=== PATIENT | male | born 1965 | race Caucasian/White ===

== ENCOUNTER 2019-01-29 13:24 | Emergency (ER) | payer BC, SELFPAY ==
[2019-01-29 13:26] VITALS: BP 140/92; PULSE 74; RESP 20; TEMP 36.6; O2SAT 100; BMI 33.0
[2019-01-29 14:24] VITALS: BP 132/82; PULSE 64; RESP 16; O2SAT 99
--- NOTE | 2019-01-29 14:49 | RAD_ITS ---
STUDY: X-RAY CHEST REASON FOR EXAM: Male, 54 years old. Dizziness. TECHNIQUE: 2 views COMPARISON: None. FINDINGS: The lungs are clear and expanded. There is no demonstrated pleural abnormality. Normal size heart. Normal mediastinum and laisha. Normal visualized pulmonary arteries. There is atherosclerotic tortuosity of the aortic arch and descending thoracic aorta. Normal visualized thoracic spine. Normal visualized ribs, clavicles, and shoulders. There is no demonstrated abnormality of the visualized soft tissue structures of the upper abdomen. RAD/Chest PA and Lateral IMPRESSION: No acute cardiopulmonary findings. Electronically Signed: Roxy Wilson MD at 15:42 EDT , Service support ,
--- NOTE | 2019-01-29 14:49 | EKG12_ITS ---
Test Reason : CP Blood Pressure : / mmHG Vent. Rate : 073 BPM Atrial Rate : 073 BPM P-R Int : 168 ms QRS Dur : 106 ms QT Int : 406 ms P-R-T Axes : 053 040 048 degrees QTc Int : 447 ms Normal sinus rhythm Normal ECG Confirmed by JOE ANDERSON, KANDIS ([id number]), production editor RITA MEDLEY ([id number]) on 01/30/2019 1:08:53 PM Referred By: BB Confirmed By:KANDIS DIAZ MD
[2019-01-29] MEDS: 0.9% Normal Saline 1,000 ML 1000 ML IV (15:15)
[2019-01-29 15:30] LABS: Absolute Neutrophil Count 4.7 X10^3/uL (2.0-7.7); Basophil# 0.01 X10^3/uL; Basophil% 0.1 % (0-1); Eosinophil# 0.05 X10^3/uL; Eosinophils% 0.7 % (0-5); Hematocrit 47.5 % (40-54); Hemoglobin 15.6 g/dl (13.0-16.5); Mean Corp Hgb Conc 32.8 g/gl (32-36); Mean Corpuscular Hgb 31.2 pg (27.0-32.0); Mean Platelet Vol. 9.6 fl (6.2-12.0); Monocyte# 0.63 X10^3/uL; Monocyte% 8.4 % (0-10); Neutrophil # 4.69 X10^3/uL (2.7-7.7); Neutrophil % 62.7 % (47-70); Platelet Count 219 K/mm3 (150-450); RBC Distribution Width SD 48.1 fl (35.1-43.9); White Blood Count 7.5 K/mm3 (4.4-11.0)
[2019-01-29 15:31] LABS: POSITIVE COUNT NO; POSITIVE DIFFERENTIAL NO; POSITIVE MORPHOLOGY NO
[2019-01-29 15:45] VITALS: BP 133/89; PULSE 76; RESP 17; O2SAT 94
[2019-01-29 15:50] LABS: Anion Gap 3 (5-15); BUN 14 mg/dL (7-18); BUN/Creat Ratio 15.6 RATIO (10-20); Calcium,Total 8.8 mg/dL (8.5-10.1); Chloride 108 mmol/L (98-107); EST Glomerular Filtration Rate 93 mL/min (>60); Est Glom Filt Rate - Afr Amer 113 mL/min (>60); Estimated Creatinine Clearance 109.54 ml/min; Glucose 90 mg/dL (74-106); Sodium Level 140 mmol/L (136-145)
--- NOTE | 2019-01-29 16:04 | ED.VISSUMM ---
- ER Visit Summary Date of Service: 01/29/19 Chief Complaint: Lightheadedness History of Present Illness: The patient is a 54 M who presents with lightheadedness that began today. Patient states he was helping his pain curtains when he felt lightheaded. Patient states it is gradually improving slightly. Patient states he had some blurred vision. Patient admits to a sweat with this. Patient denies any chest pain or shortness of breath. Patient denies any nausea or vomiting. Patient denies any headaches. Patient does admit to some tingling in his arms and legs. Patient admits to some blurred vision with this. Physical Examination: Vital signs are stable. Patient is afebrile. Patient is in no acute distress. Cranial nerves II through XII are intact. There are no focal motor or sensory deficits noted. Heart was regular rate and rhythm. Lungs are clear and equal bilateral. Abdomen is soft and nontender. Oral mucosa is pink and moist. Neck is supple. Trachea is midline. There is no JVD noted. The remaining physical exam is within normal limits. Test Results: EKG showed normal sinus rhythm with a rate of 73. There are no acute ST or T wave changes. PA and lateral chest x-ray does not show any acute cardiopulmonary process. CBC, basic metabolic profile and troponin were obtained and were all normal. Emergency Department Course and Treatment: Patient was feeling better on reevaluation. Patient was instructed to drink plenty of fluids. Patient was instructed to get plenty of rest. Patient was instructed to follow-up with his primary care physician in 5-7 days. Patient understood and was agreeable with the plan. All questions were answered. Disposition: Discharge home Impression: Near syncope This note was generated with [employer] dictation software. It may contain incorrect words, spelling, and punctuation that were not noted in review of the chart prior to signing ED Disposition - Plan for ED Patient: Disposition: Home or Assisted Living Diagnosis: Near syncope Instructions: ED Weakness [facility] – [place] Referrals: Celio Reid MD [Primary Care Provider] - 3-5 Days
--- NOTE | 2019-01-29 16:09 | ED.DCSUM_ITS ---
- ER Visit Summary Date of Service: 01/29/19 Chief Complaint: Lightheadedness History of Present Illness: The patient is a 54 M who presents with lightheadedness that began today. Patient states he was helping his pain curtains when he felt lightheaded. Patient states it is gradually improving slightly. Patient states he had some blurred vision. Patient admits to a sweat with this. Patient denies any chest pain or shortness of breath. Patient denies any nausea or vomiting. Patient denies any headaches. Patient does admit to some tingling in his arms and legs. Patient admits to some blurred vision with this. Physical Examination: Vital signs are stable. Patient is afebrile. Patient is in no acute distress. Cranial nerves II through XII are intact. There are no focal motor or sensory deficits noted. Heart was regular rate and rhythm. Lungs are clear and equal bilateral. Abdomen is soft and nontender. Oral mucosa is pink and moist. Neck is supple. Trachea is midline. There is no JVD noted. The remaining physical exam is within normal limits. Test Results: EKG showed normal sinus rhythm with a rate of 73. There are no acute ST or T wave changes. PA and lateral chest x-ray does not show any acute cardiopulmonary process. CBC, basic metabolic profile and troponin were obtained and were all normal. Emergency Department Course and Treatment: Patient was feeling better on reeval uation. Patient was instructed to drink plenty of fluids. Patient was instructed to get plenty of rest. Patient was instructed to follow-up with his primary care physician in 5-7 days. Patient understood and was agreeable with the plan. All questions were answered. Disposition: Discharge home Impression: Near syncope This note was generated with [employer] dictation software. It may contain incorrect words, spelling, and punctuation that were not noted in review of the chart prior to signing ED Disposition - Plan for ED Patient: Disposition: Home or Assisted Living Diagnosis: Near syncope Instructions: [place] [facility] [place]errals: Celio Reid MD [Primary Care Provider] - 3-5 Days
[2019-01-29 16:27] VITALS: BP 136/84; PULSE 64; RESP 12; O2SAT 99
== END 2019-01-29 16:28 | disposition home or self-care (01) ==
PROVIDERS: Emergency Provider Emergency Medicine; Family Provider Family Medicine; PCP Family Medicine
DX: R55 Syncope and collapse (principal); I10 Essential (primary) hypertension; Z79.82 Long term (current) use of aspirin; Z79.899 Other long term (current) drug therapy
CPT/HCPCS: 71046; 80048; 84484; 85025; 93005; 96360; 99285; J7030; A4216

== ENCOUNTER → 2019-02-03 12:36 | Outpatient (CLI) | payer BC, SELFPAY ==
[2019-01-29 13:26] VITALS: BMI 33.0
== END ==
PROVIDERS: Family Provider Family Medicine; PCP Family Medicine; Referring Provider Internal Medicine Cardiovascular Disease; Visit Provider Internal Medicine Cardiovascular Disease
DX: I25.10 Atherosclerotic heart disease of native coronary artery without angina pectoris (principal); R55 Syncope and collapse; I10 Essential (primary) hypertension
CPT/HCPCS: 84484